=== PATIENT | female | born 1950 | race Caucasian/White ===

== ENCOUNTER → 2016-10-17 | Outpatient (CLI) | payer BC | LOC: MC.RAD 13:12 | DX: Z12.31 Encounter for screening mammogram for malignant neoplasm of breast (principal) ==

== ENCOUNTER → 2017-12-03 | Outpatient (CLI) | payer MEDICARE, BC | LOC: MC.RAD 09:00 | DX: Z12.31 Encounter for screening mammogram for malignant neoplasm of breast (principal) ==

== ENCOUNTER 2019-02-18 10:18 | Outpatient (RCR) | payer MEDICARE, BC | END 2019-03-17 08:47 | disposition home or self-care (01) | LOC: WSPT 10:18 | DX: Z01.818 Encounter for other preprocedural examination (principal); M17.12 Unilateral primary osteoarthritis, left knee ==

== ENCOUNTER 2019-04-22 10:30 | Outpatient (RCR) | payer MEDICARE, BC | END 2019-05-05 14:21 | disposition home or self-care (01) | LOC: WSPT 10:30 | DX: M17.12 Unilateral primary osteoarthritis, left knee (principal); Z96.652 Presence of left artificial knee joint ==

== ENCOUNTER → 2020-05-17 | Outpatient (CLI) | payer MEDICARE, BC | LOC: MC.RAD 09:30 | DX: Z12.31 Encounter for screening mammogram for malignant neoplasm of breast (principal) ==

== ENCOUNTER → 2021-10-16 | Outpatient (CLI) | payer MEDICARE, BC | LOC: MC.RAD 12:54 | DX: Z12.31 Encounter for screening mammogram for malignant neoplasm of breast (principal) ==

== ENCOUNTER → 2022-12-09 | Outpatient (CLI) | payer MEDICARE, BC | LOC: MC.RAD 10:29 | DX: Z12.31 Encounter for screening mammogram for malignant neoplasm of breast (principal) ==